=== PATIENT | male | born 1955 | race Caucasian/White ===

== ENCOUNTER 2017-03-19 23:07 | Inpatient (IN) | payer SELFPAY ==
[2017-03-20] MEDS ORDERED: Lorazepam 2 MG/ML VIAL ONE ×2 (00:20→00:21)
[2017-03-20 00:45] LABS: #Lymphocytes 0.5 thou/uL (1.20-3.40); #Monocytes 0.6 thou/uL (0.11-0.59); #Neutrophils 17.4 thou/uL (1.40-6.50); %Basophils 0.1 % (0.0-1.0); %Eosinophils 0.1 % (0.0-10.0); %Lymphocytes 2.7 % (21.0-51.0); %Monocytes 3.3 % (0.0-10.0); %Neutrophils 93.8 % (42.0-75.0); Hemoglobin 10.6 g/dL (14.0-18.0); Mean Corpuscular HGB CONC 34.2 g/dL (32.0-36.0); Mean Corpuscular Hemoglobin 35.7 pg (27.0-31.0); Mean Platelet Volume 6.6 fL (7.4-10.4); Platelet Count 138 thou/uL (130-400); RBC Distribution Width 11.3 % (11.5-14.5); Red Blood Cell (RBC) Count 2.98 mill/uL (4.70-6.10); White Blood Cell (WBC) Count 18.5 thou/uL (4.8-10.8)
[2017-03-20] MEDS ORDERED: Multivitamins, Adult 10 ML, Thiamine HCl 100 MG, Folic Acid 1 MG in Dextrose 5 %-0.45 %... IV SCH ×4 (01:00)
[2017-03-20 01:06] LABS: ALT (SGPT) 27 U/L (8-55); AST (SGOT) 45 U/L (5-34); Albumin 3.5 g/dL (3.4-4.8); Alkaline Phosphatase 126 U/L (40-150); Anion Gap 13 mmol/L (10-20); BUN (Urea Nitrogen) 13 mg/dL (8.4-25.7); Bilirubin, Total 1.2 mg/dL (0.2-1.2); Calc. Creatinine Clearance 0 mL/min (70-130); Calcium 8.9 mg/dL (7.8-10.44); Carbon Dioxide 25 mmol/L (23-31); Chloride 101 mmol/L (98-107); Estimated GFR-MDRD Greater than 90; Glucose 114 mg/dL (80-115); Potassium 3.4 mmol/L (3.5-5.1); Protein, Total 6.5 g/dL (5.8-8.1); Sodium 136 mmol/L (136-145)
[2017-03-20 01:11] LABS: CKMB 0.7 ng/mL (0-6.6); Troponin I 0.042 ng/mL (< 0.028)
[2017-03-20 03:38] VITALS: BMI 16.7
[2017-03-20] MEDS ORDERED: Ondansetron ODT 4 MG TAB SL PRN (04:02)
[2017-03-20] MEDS ORDERED: Sodium Chloride 0.45% 1,000 ML IV SCH (04:02)
[2017-03-20] MEDS ORDERED: Ondansetron HCl/PF 4 MG/2 ML Vial IVP PRN ×2 (04:02→07:55)
[2017-03-20] MEDS ORDERED: Lorazepam 2 MG/ML VIAL SLOW IVP PRN ×2 (04:05→07:55)
[2017-03-20] MEDS ORDERED: Sodium Chloride 0.65% Nasal 44 ML BOT EA NARE PRN (07:55)
[2017-03-20] MEDS ORDERED: hydrALAZINE 20 MG/ML VIAL SLOW IVP PRN (07:55)
[2017-03-20] MEDS ORDERED: Chloraseptic Spray 180 ml Bottle PO PRN (07:55)
[2017-03-20] MEDS ORDERED: Mag-Al 1200 mg/1200 mg/30 ML UDCUP PO PRN (07:55)
[2017-03-20] MEDS ORDERED: Zolpidem Tartrate 5 MG TAB PO PRN (07:55)
[2017-03-20] MEDS ORDERED: HYDROcodone/Acetaminophen 5/325 mg Tablet PO PRN (07:55)
[2017-03-20] MEDS ORDERED: Milk Of Magnesia 30 ML UDCUP PO PRN (07:55)
[2017-03-20] MEDS ORDERED: Diabetic Tussin 200 MG/10 ML UDCUP PO PRN (07:55)
[2017-03-20] MEDS ORDERED: cloNIDine 0.1 MG TAB PO PRN (07:55)
[2017-03-20] MEDS ORDERED: Eucerin (Mineral Oil/Petrolatum,White) 30 gm Jar TOP PRN (07:55)
[2017-03-20] MEDS ORDERED: Artificial Tears 18 DROP/0.9 ML EA EYE PRN (07:55)
[2017-03-20] MEDS ORDERED: Loratadine 10 MG TAB PO PRN (07:55)
[2017-03-20] MEDS ORDERED: Acetaminophen 325 MG TAB PO PRN (07:55)
[2017-03-20] MEDS ORDERED: Ondansetron ODT 4 MG TAB PO PRN (07:55)
[2017-03-20] MEDS ORDERED: Senokot 8.6 MG TAB PO PRN (07:55)
[2017-03-20] MEDS ORDERED: cefTRIAXone\\ROCEPHIN 1 GM in Sodium Chloride 0.9% 100 ML IVPB SCH (08:00)
[2017-03-20] MEDS: Folic Acid 1 MG TAB PO SCH (09:43)
[2017-03-20] MEDS: Cyanocobalamin (Vitamin B-12) 1,000 MCG TAB PO SCH (09:43)
[2017-03-20] MEDS: Multivitamin W/ Minerals 1 TAB PO SCH (09:43)
[2017-03-20] MEDS: Amlodipine 5 MG TAB PO SCH (09:44)
[2017-03-20] MEDS: guaiFENesin ER 600 MG TAB PO SCH ×2 (09:44→21:11)
[2017-03-20] MEDS: Famotidine 20 MG TAB PO SCH ×2 (09:44→21:11)
[2017-03-20] MEDS: Enoxaparin Sodium 30 MG/0.3 ML SYRINGE SC SCH (09:49)
[2017-03-20] MEDS: Loperamide HCl 2 MG CAP PO PRN (10:14)
--- NOTE | 2017-03-20 15:16 | HP ---
PRIMARY CARE PHYSICIAN: Dr. Lane Escobedo. REASON FOR ADMISSION: Sepsis, urinary tract infection. HISTORY OF PRESENT ILLNESS: This is a 61-year-old male who initially went to [facility]. The patient had an outpatient basis blood test done, and after that patient's blood test was s ignificantly abnormal with leukocytosis. Patient was called and he was instructed to go to emergency room for evaluation. Lately, patient was having poor appetite. He was having fatigue. He was not feeling good. He was h aving diarrhea as well as he was having nausea, vomiting, and intermittent fever. When he went to [facility], he was febrile with temperature 100.6. He was tachycardic with pulse 124 and he was hypertensive. His chest x-ray was normal. His urinalysis was suspected for urinary tract infection, though the patient denied any dysuria, increased frequency, or any hematuria. Patient wa s given Zosyn, ibuprofen, IV fluid, and subsequently he was transferred to our hospital for higher le aron of care. This patient is not a good historian. He denies any melena or hematochezia, but he does report diarr hea. He denies any chest pain, cough, pleurisy. He denies any sick exposure or recent travel. He d enies any focal motor symptoms. He denies any flu-like illness. His WBC count was initially 29,000, and subsequently repeated it was 21,000 and then this morning it was 18,000. This patient also had indeterminate troponin. Influenza screen was negative. ALLERGIES: No known drug allergies. CURRENT HOME MEDICATIONS: The patient is not taking any medication at this point. He is supposed to take his blood pressure medicine, but he is also noncompliant. He does not know the name of medicat ion, so unable to review at this point. PAST MEDICAL HISTORY: Hypertension, COPD, alcohol abuse, tobacco abuse, macrocytic anemia, recent di agnosis of nondisplaced fibular neck fracture, protein-calorie malnutrition. PAST SURGICAL HISTORY: Left inguinal hernia repair. PAST PSYCHIATRIC HISTORY: Reviewed and negative. SOCIAL HISTORY: Patient drinks alcohol almost every day basis. He has chronic alcoholism. He smoke s a variable number of cigarettes every day basis. He denies any illicit drug abuse. He is and lives with the in [place]. FAMILY HISTORY: No strong family history of premature coronary artery disease, stroke, or cancer. EMERGENCY ROOM COURSE: Patient is given ibuprofen, IV fluid, and Zosyn at [facility]. The patient was given vancomycin, Ativan 2 mg, and DuoNeb therapy, and banana bag in our emergenc y room. REVIEW OF SYSTEMS: The following complete review of systems was negative, unless otherwise mentioned in the HPI or below: Constitutional: Weight loss or gain, ability to conduct usual activities. Sk in: Rash, itching. Eyes: Double vision, pain. ENT/Mouth: Nose bleeding, neck stiffness, pain, te nderness. Cardiovascular: Palpitations, dyspnea on exertion, orthopnea. Respiratory: Shortness of breath, wheezing, cough, hemoptysis, fever, or night sweats. Gastrointestinal: Poor appetite, abdo elizabeth pain, heartburn, nausea, vomiting, constipation, or diarrhea. Genitourinary: Urgency, frequen cy, dysuria, nocturia. Musculoskeletal: Pain, swelling. Neurologic/Psychiatric: Anxiety, depressi on. Allergy/Immunologic: Skin rash, bleeding tendency. Please see my HPI for pertinent positives a nd negatives. All other review of systems reviewed and negative except as mentioned in the HPI. PHYSICAL EXAMINATION: VITAL SIGNS: On our emergency room, blood pressure was 176/110, pulse 109, respiratory rate 20, temp erature 98.4, saturation 90% on room air, weight 44 kilograms. GENERAL: Patient is currently alert, awake, tachycardic, in no obvious acute distress. HEENT: Normocephalic, atraumatic. Eyes: Pupils round and reactive to light. Extraocular muscles i ntact. ENT: Oropharynx within normal limits. Moist mucous membranes. No oral lesions. No pharyng eal erythema, no exudate. NECK: Supple, no JVD, no thyromegaly, no carotid bruit, no jugular venous distention. LUNGS: Clear to auscultation without any rhonchi or rales. CARDIAC: S1 and S2, regular, tachycardia, no murmur, no gallop, no rub. ABDOMEN: Soft, bowel sounds present, nontender, nondistended. No organomegaly, no mass, no suprapub ic tenderness. BACK EXAMINATION: Unremarkable, no CVA tenderness. EXTREMITIES: Upper extremities, passive movement of all joints are normal. Lower extremities, no ed trudy. Good peripheral pulsation. SKIN: No skin rash. HEMATOLOGICAL SYSTEM: No lymphadenopathy. NEUROLOGIC: Grossly nonfocal examination. The patient moves all 4 limbs. Plantar bilateral flexor. PSYCHIATRIC: Anxious affect. SIGNIFICANT LABORATORY DATA: Influenza A and B negative. CBC: WBC 18.5, hemoglobin 10.6, platelets 138. BMP: Sodium 136, potassium 3.4, chloride 101, carbon dioxide 25, BUN 13, creatinine 0.62, glu cose 114, calcium 8.9. LFTs: AST 45, ALT 27, alkaline phosphatase 126, albumin 3.5. CK-MB 0.7, tro ponin I 0.04. Lactic acid 1.0. Chest x-ray, based on my review, no acute cardiopulmonary process. ASSESSMENT AND PLAN: 1. Sepsis with acute organ dysfunction. The patient has leukocytosis with bandemia, source of infec tion is urinary tract infection. He has demand ischemia of myocardium. He has lactic acidosis. Pat ient will be given gentle IV fluids and broad-spectrum antibiotic therapy. We will follow up on cult ure result. We will also check stool for C. difficile. 2. Urinary tract infection. Patient is kept on Rocephin and Levaquin therapy. We will follow up on urine culture result, and based on culture result, we will change antibiotic therapy accordingly. 3. Lactic acidosis, on repeat testing lactic acid is normal, likely due to underlying sepsis. 4. Elevated troponin, likely due to demand ischemia from sepsis. We will repeat cardiac enzymes aga in one more time tomorrow morning. 5. Nondisplaced fibular neck fracture. We will consult PT and OT. This patient is ambulating with a walker. We will control his pain with the pain medication. Patient is advised to follow up with o rthopedic physician on an outpatient basis. 6. Protein-calorie malnutrition. The patient will be given nutritional supplement with Ensure t.i.d . 7. Hypokalemia. We will replace potassium with IV fluid and we will check magnesium and phosphorous tomorrow. 8. Tobacco abuse disorder. Smoking cessation counseling given. Healthy lifestyle measures discusse d with the patient. 9. Alcoholism with alcohol withdrawal syndrome. We will use folic acid, vitamin B12, thiamine thera py, and we will also use Ativan p.r.n. basis for possible withdrawal. 10. Microcytic anemia. Continue folic acid and vitamin B12 therapy. 11. Abnormal liver function tests, likely due to alcoholism. We will repeat LFTs tomorrow. 12. Deep venous thrombosis prophylaxis. Lovenox 30 mg subcutaneously daily. 13. Gastrointestinal prophylaxis. Pepcid 20 mg p.o. b.i.d. 14. Code status: The patient is FULL CODE. The patient's is surrogate decision maker. Disposition plan based on clinical course. We are expecting patient's stay in hospital more than 2 m idnights. Plan of care discussed with the patient in detail.
[2017-03-21 06:20] LABS: #Eosinphils 0.1 thou/uL (0.0-0.7); #Lymphocytes 0.9 thou/uL (1.20-3.40); #Monocytes 0.6 thou/uL (0.11-0.59); #Neutrophils 5.5 thou/uL (1.40-6.50); %Basophils 0.4 % (0.0-1.0); %Eosinophils 0.8 % (0.0-10.0); %Lymphocytes 12.3 % (21.0-51.0); %Monocytes 8.2 % (0.0-10.0); %Neutrophils 78.3 % (42.0-75.0); Hemoglobin 11.7 g/dL (14.0-18.0); Mean Corpuscular HGB CONC 33.2 g/dL (32.0-36.0); Mean Corpuscular Hemoglobin 34.9 pg (27.0-31.0); Mean Platelet Volume 7.2 fL (7.4-10.4); Platelet Count 140 thou/uL (130-400); RBC Distribution Width 11.1 % (11.5-14.5); Red Blood Cell (RBC) Count 3.34 mill/uL (4.70-6.10); White Blood Cell (WBC) Count 7.1 thou/uL (4.8-10.8)
[2017-03-21 06:33] LABS: ALT (SGPT) 19 U/L (8-55); AST (SGOT) 39 U/L (5-34); Albumin 3.3 g/dL (3.4-4.8); Alkaline Phosphatase 119 U/L (40-150); Anion Gap 13 mmol/L (10-20); BUN (Urea Nitrogen) 7 mg/dL (8.4-25.7); Bilirubin, Total 0.7 mg/dL (0.2-1.2); Calc. Creatinine Clearance 109 mL/min (70-130); Calcium 9.2 mg/dL (7.8-10.44); Carbon Dioxide 27 mmol/L (23-31); Chloride 95 mmol/L (98-107); Estimated GFR-MDRD Greater than 90; Glucose 74 mg/dL (80-115); Magnesium 1.2 mg/dL (1.6-2.6); Phosphorus 2.8 mg/dL (2.3-4.7); Protein, Total 6.3 g/dL (5.8-8.1); Sodium 132 mmol/L (136-145)
[2017-03-21 06:35] LABS: CKMB 0.5 ng/mL (0-6.6); Troponin I 0.021 ng/mL (< 0.028)
[2017-03-21 06:37] LABS: Potassium 2.7 mmol/L (3.5-5.1)
[2017-03-21] MEDS ORDERED: Magnesium Sulfate 4 GM, Admixture Fee 1 EACH in Sodium Chloride 0.9% 250 ML 250 ML IVPB SCH (07:45)
[2017-03-21] MEDS: Potassium Chloride 20 MEQ TAB PO SCH ×3 (09:23→21:14)
[2017-03-21] MEDS: Folic Acid 1 MG TAB PO SCH (09:24)
[2017-03-21] MEDS: Enoxaparin Sodium 30 MG/0.3 ML SYRINGE SC SCH (09:24)
[2017-03-21] MEDS: Famotidine 20 MG TAB PO SCH ×2 (09:24→21:14)
[2017-03-21] MEDS: Cyanocobalamin (Vitamin B-12) 1,000 MCG TAB PO SCH (09:24)
[2017-03-21] MEDS: Multivitamin W/ Minerals 1 TAB PO SCH (09:24)
[2017-03-21] MEDS: guaiFENesin ER 600 MG TAB PO SCH ×2 (09:24→21:14)
[2017-03-21] MEDS: Amlodipine 5 MG TAB PO SCH (09:24)
--- NOTE | 2017-03-21 10:49 | PDOC.PN ---
- Subjective Encounter Start Date: 03/21/17 Encounter Start Time: 08:50 -: old records requested/rev Patient seen and examined. No new complaints. No overnight events, no fever - Objective Resuscitation Status: Resuscitation Status FULL:Full Resuscitation MAR Reviewed: Yes Vital Signs & Weight: Vital Signs (12 hours) Temp Pulse Resp BP BP Pulse Ox 03/21/17 09:24 92 172/94 H 03/21/17 08:00 98.1 F 92 18 172/94 H 98 03/21/17 04:00 97.8 F 88 18 150/78 H 150/78 H 98 Weight Admit Weight 113 lb 11.2 oz Weight 113 lb 11.2 oz I&O: 03/20/17 03/21/17 03/22/17 06:59 06:59 06:59 Intake Total 1020 240 Output Total 100 1580 Balance -100 -560 240 Result Diagrams: 03/21/17 05:01 03/21/17 05:01 EKG Reviewed by me: Yes (nsr) Phys Exam - Physical Examination Constitutional: NAD HEENT: PERRLA, moist MMs, sclera anicteric Neck: no JVD, supple Respiratory: no wheezing, no rales, no rhonchi Cardiovascular: RRR, no significant murmur, no rub Gastrointestinal: soft, non-tender, no distention, positive bowel sounds Musculoskeletal: no edema, pulses present Neurological: non-focal, normal sensation, moves all 4 limbs Lymphatic: no nodes Psychiatric: normal affect, A&O x 3 Skin: no rash, normal turgor Dx/Plan (1) Demand ischemia Code(s): I24.8 - OTHER FORMS OF ACUTE ISCHEMIC HEART DISEASE Status: Acute (2) Hypokalemia Code(s): E87.6 - HYPOKALEMIA Status: Acute (3) Hypomagnesemia Code(s): E83.42 - HYPOMAGNESEMIA Status: Acute (4) Nondisplaced fracture of fibula Code(s): S82.839A - OTH FRACTURE OF UPPER AND LOWER END OF UNSP FIBULA, INIT Status: Acute (5) Sepsis with acute organ dysfunction Code(s): A41.9 - SEPSIS, UNSPECIFIED ORGANISM; R65.20 - SEVERE SEPSIS WITHOUT SEPTIC SHOCK Status: Acute (6) UTI (urinary tract infection) Status: Acute (7) Abnormal LFTs Code(s): R79.89 - OTHER SPECIFIED ABNORMAL FINDINGS OF BLOOD CHEMISTRY Status : Chronic (8) Alcohol abuse Code(s): F10.10 - ALCOHOL ABUSE, UNCOMPLICATED Status: Chronic (9) Hypertension Code(s): I10 - ESSENTIAL (PRIMARY) HYPERTENSION Status: Chronic (10) Macrocytic anemia Code(s): D53.9 - NUTRITIONAL ANEMIA, UNSPECIFIED Status: Chronic (11) Protein-calorie malnutrition, moderate Code(s): E44.0 - MODERATE PROTEIN-CALORIE MALNUTRITION Status: Chronic (12) Tobacco abuse Code(s): Z72.0 - TOBACCO USE Status: Chronic (13) Lactic acidosis Code(s): E87.2 - ACIDOSIS Status: Resolved - Plan cont current plan of care, continue antibiotics * DC tele * transfer to medical * continue rocephin and levaquin * medication reviewed as below * symptomatic treatment * follow culture * continue PT. * replace magnesium and potassium Review of Systems - Review of Systems ENT: negative: Ear Pain, Ear Discharge, Nose Pain, Nose Discharge, Nose Congestion, Mouth Pain, Mouth Swelling, Throat Pain, Throat Swelling, Other Respiratory: negative: Cough, Dry, Shortness of Breath, Hemoptysis, SOB with Excertion, Pleuritic Pain, Sputum, Wheezing Cardiovascular: negative: chest pain, palpitations, orthopnea, paroxysmal nocturnal dyspnea, edema, light headedness, other Gastrointestinal: negative: Nausea, Vomiting, Abdominal Pain, Diarrhea, Constipation, Melena, Hematochezia, Other Genitourinary: negative: Dysuria, Frequency, Incontinence, Hematuria, Retention , Other Musculoskeletal: negative: Neck Pain, Shoulder Pain, Arm Pain, Back Pain, Hand Pain, Leg Pain, Foot Pain, Other Skin: negative: Rash, Lesions, Senthil, Bruising, Other - Medications/Allergies Allergies/Adverse Reactions: Allergies Allergy/AdvReac Type Severity Reaction Status Date / Time lactose Allergy Verified 03/20/17 03:34 Medications: Current Medications Acetaminophen (Tylenol) 650 mg PO Q4H PRN PRN Reason: Headache/Fever or Pain Hydrocodone Bitart/Acetaminophen ([place] 5/325) 1 tab PO Q4H PRN PRN Reason: Moderate Pain (4-6) Last Admin: 03/20/17 21:10 Dose: 1 tab Al Hydroxide/Mg Hydroxide (Maalox) 30 ml PO Q6H PRN PRN Reason: Heartburn or Indigestion Albuterol/Ipratropium (Duoneb) 3 ml NEB [id number] PRN PRN Reason: SOB &/or Wheezing Amlodipine Besylate (Norvasc) 5 mg PO DAILY [facility] Last Admin: 03/21/17 09:24 Dose: 5 mg Artificial Tears (Tears Naturale) 0 drop EA EYE PRN PRN PRN Reason: Dry Eyes Ceftriaxone Sodium (Rocephin) 1 gm SLOW IVP Q24H [facility] Last Admin: 03/21/17 10:45 Dose: 1 gm Clonidine (Catapres) 0.1 mg PO Q4H PRN PRN Reason: Systolic BP > 180 Cyanocobalamin (Vitamin B-12) 1,000 mcg PO DAILY [facility] Last Admin: 03/21/17 09:24 Dose: 1,000 mcg Enoxaparin Sodium (Lovenox) 30 mg SC 0900 [facility] Last Admin: 03/21/17 09:24 Dose: 30 mg Famotidine (Pepcid) 20 mg PO BID [facility] Last Admin: 03/21/17 09:24 Dose: 20 mg Folic Acid (Folvite) 1 mg PO DAILY [facility] Last Admin: 03/21/17 09:24 Dose: 1 mg Guaifenesin (Robitussin Sf) 200 mg PO Q4H PRN PRN Reason: Cough Guaifenesin (Mucinex) 600 mg PO Q12HR [facility] Last Admin: 03/21/17 09:24 Dose: 600 mg Hydralazine HCl (Apresoline) 10 mg SLOW IVP Q4H PRN PRN Reason: Systolic BP > 180 Levofloxacin 500 mg/ Device 100 mls @ 100 mls/hr IVPB Q24HR [facility] Last Admin: 03/21/17 09:29 Dose: 100 mls Magnesium Sulfate 4 gm/Miscellaneous Medication 1 each/ Sodium Chloride 258 mls @ 86 mls/hr IVPB ONE [facility] Stop: 03/21/17 11:00 Last Admin: 03/21/17 09:25 Dose: 258 mls Iron/Minerals/Multivitamins (Theragran M) 1 tab PO DAILY [facility] Last Admin: 03/21/17 09:24 Dose: 1 tab Loperamide HCl (Imodium) 2 mg PO PRN PRN PRN Reason: Diarrhea/Loose Stools Last Admin: 03/20/17 10:14 Dose: 2 mg Loratadine (Claritin) 10 mg PO DAILYPRN PRN PRN Reason: Sinus Symptoms Lorazepam (Ativan) 1 mg SLOW IVP Q4H PRN PRN Reason: Anxiety/Agitation Magnesium Hydroxide (Milk Of Magnesium) 30 ml PO DAILYPRN PRN PRN Reason: Constipation Mineral Oil/White Petrolatum (Eucerin Cream) 0 gm TOP BIDPRN PRN PRN Reason: Dry Skin Morphine Sulfate (Morphine) 2 mg SLOW IVP Q4H PRN PRN Reason: Mild-Moderate Pain (1-5) Ondansetron HCl (Zofran Odt) 4 mg PO Q6H PRN PRN Reason: Nausea/Vomiting Ondansetron HCl (Zofran) 4 mg IVP Q6H PRN PRN Reason: Nausea/Vomiting Phenol (Chloraseptic [place] 180 Ml Bot) 0 ml PO PRN PRN PRN Reason: Sore Throat Potassium Chloride (K-Dur) 40 meq PO TID [facility] Stop: 03/21/17 21:01 Last Admin: 03/21/17 09:23 Dose: 40 meq Senna (Senokot) 2 tab PO HSPRN PRN PRN Reason: Constipation Sodium Chloride ([place] Nasal [place] 0.65%) 0 ml EA NARE QIDPRN PRN PRN Reason: Nasal Congestion Sodium Chloride (Flush - Normal Saline) 10 ml IVF Q12HR [facility] Last Admin: 03/21/17 09:25 Dose: 10 ml Sodium Chloride (Flush - Normal Saline) 10 ml IVF PRN PRN PRN Reason: Saline Flush Thiamine HCl (Thiamine) 100 mg PO DAILY [facility] Last Admin: 03/21/17 09:24 Dose: 100 mg Zolpidem Tartrate (Ambien) 5 mg PO HSPRN PRN PRN Reason: Insomnia
[2017-03-21] MEDS: Loperamide HCl 2 MG CAP PO PRN (23:38)
[2017-03-22 06:00] LABS: #Lymphocytes 0.7 thou/uL (1.20-3.40); #Monocytes 0.8 thou/uL (0.11-0.59); %Basophils 0.3 % (0.0-1.0); %Eosinophils 0.4 % (0.0-10.0); %Lymphocytes 9.8 % (21.0-51.0); %Monocytes 10.2 % (0.0-10.0); %Neutrophils 79.3 % (42.0-75.0); Hemoglobin 10.8 g/dL (14.0-18.0); Mean Corpuscular HGB CONC 33.9 g/dL (32.0-36.0); Mean Corpuscular Hemoglobin 35.2 pg (27.0-31.0); Mean Platelet Volume 6.9 fL (7.4-10.4); Platelet Count 158 thou/uL (130-400); RBC Distribution Width 10.7 % (11.5-14.5); Red Blood Cell (RBC) Count 3.07 mill/uL (4.70-6.10); White Blood Cell (WBC) Count 7.6 thou/uL (4.8-10.8)
[2017-03-22 06:18] LABS: ALT (SGPT) 21 U/L (8-55); AST (SGOT) 39 U/L (5-34); Albumin 3.3 g/dL (3.4-4.8); Alkaline Phosphatase 117 U/L (40-150); Anion Gap 9 mmol/L (10-20); BUN (Urea Nitrogen) 5 mg/dL (8.4-25.7); Bilirubin, Total 0.7 mg/dL (0.2-1.2); Calc. Creatinine Clearance 111 mL/min (70-130); Calcium 8.5 mg/dL (7.8-10.44); Carbon Dioxide 27 mmol/L (23-31); Chloride 94 mmol/L (98-107); Estimated GFR-MDRD Greater than 90; Globulin 2.9 g/dL (2.4-3.5); Glucose 84 mg/dL (80-115); Magnesium 1.6 mg/dL (1.6-2.6); Potassium 3.4 mmol/L (3.5-5.1); Protein, Total 6.2 g/dL (5.8-8.1); Sodium 127 mmol/L (136-145)
[2017-03-22] MEDS: guaiFENesin ER 600 MG TAB PO SCH ×2 (10:02→21:56)
[2017-03-22] MEDS: Cyanocobalamin (Vitamin B-12) 1,000 MCG TAB PO SCH (10:04)
[2017-03-22] MEDS: Amlodipine 5 MG TAB PO SCH (10:05)
[2017-03-22] MEDS: Loperamide HCl 2 MG CAP PO PRN (10:08)
[2017-03-22] MEDS: Potassium Chloride 20 MEQ TAB PO SCH ×2 (10:09→17:35)
[2017-03-22] MEDS: Enoxaparin Sodium 30 MG/0.3 ML SYRINGE SC SCH (10:09)
[2017-03-22] MEDS: Folic Acid 1 MG TAB PO SCH (10:12)
[2017-03-22] MEDS: Famotidine 20 MG TAB PO SCH ×2 (10:12→21:56)
[2017-03-22] MEDS: Multivitamin W/ Minerals 1 TAB PO SCH (10:13)
--- NOTE | 2017-03-22 11:01 | PDOC.PN ---
- Subjective Encounter Start Date: 03/22/17 Encounter Start Time: 09:00 Patient seen and examined. No new complaints. No overnight events still has diarrhoea - Objective Resuscitation Status: Resuscitation Status FULL:Full Resuscitation MAR Reviewed: Yes Vital Signs & Weight: Vital Signs (12 hours) Temp Pulse Resp BP BP Pulse Ox 03/22/17 10:05 92 173/97 H 03/22/17 08:00 97.4 F L 88 14 173/97 H 03/22/17 04:00 98.1 F 96 19 162/98 H 03/22/17 00:00 97.9 F 96 20 158/94 H 158/94 H 95 Weight Admit Weight 113 lb 11.2 oz Weight 113 lb 11.2 oz I&O: 03/21/17 03/22/17 03/23/17 06:59 06:59 06:59 Intake Total 1020 840 Output Total 1580 650 Balance -560 190 Result Diagrams: 03/22/17 05:26 03/22/17 05:26 Phys Exam - Physical Examination Constitutional: NAD HEENT: PERRLA, moist MMs, sclera anicteric Neck: no JVD, supple Respiratory: no wheezing, no rales, no rhonchi Cardiovascular: RRR, no significant murmur, no rub Gastrointestinal: soft, non-tender, no distention, positive bowel sounds Musculoskeletal: no edema, pulses present Neurological: non-focal, normal sensation Lymphatic: no nodes Psychiatric: normal affect Skin: no rash, normal turgor Dx/Plan (1) C. difficile colitis Status: Acute (2) Demand ischemia Code(s): I24.8 - OTHER FORMS OF ACUTE ISCHEMIC HEART DISEASE Status: Acute (3) Hypokalemia Code(s): E87.6 - HYPOKALEMIA Status: Acute (4) Hypomagnesemia Code(s): E83.42 - HYPOMAGNESEMIA Status: Acute (5) Nondisplaced fracture of fibula Code(s): S82.839A - OTH FRACTURE OF UPPER AND LOWER END OF UNSP FIBULA, INIT Status: Acute (6) Sepsis with acute organ dysfunction Code(s): A41.9 - SEPSIS, UNSPECIFIED ORGANISM; R65.20 - SEVERE SEPSIS WITHOUT SEPTIC SHOCK Status: Acute (7) UTI (urinary tract infection) Status: Ruled-out (8) Abnormal LFTs Code(s): R79.89 - OTHER SPECIFIED ABNORMAL FINDINGS OF BLOOD CHEMISTRY Status : Chronic (9) Alcohol abuse Code(s): F10.10 - ALCOHOL ABUSE, UNCOMPLICATED Status: Chronic (10) Hypertension Code(s): I10 - ESSENTIAL (PRIMARY) HYPERTENSION Status: Chronic (11) Macrocytic anemia Code(s): D53.9 - NUTRITIONAL ANEMIA, UNSPECIFIED Status: Chronic (12) Protein-calorie malnutrition, moderate Code(s): E44.0 - MODERATE PROTEIN-CALORIE MALNUTRITION Status: Chronic (13) Tobacco abuse Code(s): Z72.0 - TOBACCO USE Status: Chronic (14) Lactic acidosis Code(s): E87.2 - ACIDOSIS Status: Resolved - Plan cont current plan of care, continue antibiotics, 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 negative: fever, chills, sweats, malaise, other ENT: negative: Ear Pain, Ear Discharge, Nose Pain, Nose Discharge, Nose Congestion, Mouth Pain, Mouth Swelling, Throat Pain, Throat Swelling, Other Respiratory: negative: Cough, Dry, Shortness of Breath, Hemoptysis, SOB with Excertion, Pleuritic Pain, Sputum, Wheezing Cardiovascular: negative: chest pain, palpitations, orthopnea, paroxysmal nocturnal dyspnea, edema, light headedness, other Gastrointestinal: Diarrhea. negative: Nausea, Vomiting, Abdominal Pain, Constipation, Melena, Hematochezia, Other Genitourinary: negative: Dysuria, Frequency, Incontinence, Hematuria, Retention , Other Musculoskeletal: negative: Neck Pain, Shoulder Pain, Arm Pain, Back Pain, Hand Pain, Leg Pain, Foot Pain, Other Skin: negative: Rash, Lesions, Senthil, Bruising, Other - Medications/Allergies Allergies/Adverse Reactions: Allergies Allergy/AdvReac Type Severity Reaction Status Date / Time lactose Allergy Verified 03/20/17 03:34 Medications: Current Medications Acetaminophen (Tylenol) 650 mg PO Q4H PRN PRN Reason: Headache/Fever or Pain Hydrocodone Bitart/Acetaminophen ([place] 5/325) 1 tab PO Q4H PRN PRN Reason: Moderate Pain (4-6) Last Admin: 03/20/17 21:10 Dose: 1 tab Al Hydroxide/Mg Hydroxide (Maalox) 30 ml PO Q6H PRN PRN Reason: Heartburn or Indigestion Albuterol/Ipratropium (Duoneb) 3 ml NEB [id number] PRN PRN Reason: SOB &/or Wheezing Amlodipine Besylate (Norvasc) 5 mg PO DAILY [facility] Last Admin: 03/22/17 10:05 Dose: 5 mg Artificial Tears (Tears Naturale) 0 drop EA EYE PRN PRN PRN Reason: Dry Eyes Clonidine (Catapres) 0.1 mg PO Q4H PRN PRN Reason: Systolic BP > 180 Cyanocobalamin (Vitamin B-12) 1,000 mcg PO DAILY [facility] Last Admin: 03/22/17 10:04 Dose: 1,000 mcg Enoxaparin Sodium (Lovenox) 30 mg SC 0900 [facility] Last Admin: 03/22/17 10:09 Dose: 30 mg Famotidine (Pepcid) 20 mg PO BID [facility] Last Admin: 03/22/17 10:12 Dose: 20 mg Folic Acid (Folvite) 1 mg PO DAILY [facility] Last Admin: 03/22/17 10:12 Dose: 1 mg Guaifenesin (Robitussin Sf) 200 mg PO Q4H PRN PRN Reason: Cough Guaifenesin (Mucinex) 600 mg PO Q12HR [facility] Last Admin: 03/22/17 10:02 Dose: 600 mg Hydralazine HCl (Apresoline) 10 mg SLOW IVP Q4H PRN PRN Reason: Systolic BP > 180 Metronidazole 500 mg/ Device 100 mls @ 100 mls/hr IVPB Q8HR [facility] Iron/Minerals/Multivitamins (Theragran M) 1 tab PO DAILY [facility] Last Admin: 03/22/17 10:13 Dose: 1 tab Loperamide HCl (Imodium) 2 mg PO PRN PRN PRN Reason: Diarrhea/Loose Stools Last Admin: 03/22/17 10:08 Dose: 2 mg Loratadine (Claritin) 10 mg PO DAILYPRN PRN PRN Reason: Sinus Symptoms Lorazepam (Ativan) 1 mg SLOW IVP Q4H PRN PRN Reason: Anxiety/Agitation Magnesium Hydroxide (Milk Of Magnesium) 30 ml PO DAILYPRN PRN PRN Reason: Constipation Mineral Oil/White Petrolatum (Eucerin Cream) 0 gm TOP BIDPRN PRN PRN Reason: Dry Skin Morphine Sulfate (Morphine) 2 mg SLOW IVP Q4H PRN PRN Reason: Mild-Moderate Pain (1-5) Ondansetron HCl (Zofran Odt) 4 mg PO Q6H PRN PRN Reason: Nausea/Vomiting Ondansetron HCl (Zofran) 4 mg IVP Q6H PRN PRN Reason: Nausea/Vomiting Phenol (Chloraseptic [place] 180 Ml Bot) 0 ml PO PRN PRN PRN Reason: Sore Throat Potassium Chloride (K-Dur) 40 meq PO BID-[facility] Stop: 03/22/17 17:01 Last Admin: 03/22/17 10:09 Dose: 40 meq Senna (Senokot) 2 tab PO HSPRN PRN PRN Reason: Constipation Sodium Chloride ([place] Nasal [place] 0.65%) 0 ml EA NARE QIDPRN PRN PRN Reason: Nasal Congestion Sodium Chloride (Flush - Normal Saline) 10 ml IVF Q12HR [facility] Last Admin: 03/22/17 10:10 Dose: 10 ml Sodium Chloride (Flush - Normal Saline) 10 ml IVF PRN PRN PRN Reason: Saline Flush Last Admin: 03/22/17 10:11 Dose: 10 ml Thiamine HCl (Thiamine) 100 mg PO DAILY [facility] Last Admin: 03/22/17 10:04 Dose: 100 mg Vancomycin HCl (First Vancomycin) 125 mg PO QID [facility] Zolpidem Tartrate (Ambien) 5 mg PO HSPRN PRN PRN Reason: Insomnia
[2017-03-22] MEDS: Vancomycin HCl 25 MG/ML Oral PO SCH ×4 (12:29→21:56)
[2017-03-22] MEDS: metroNIDAZOLE 500 MG in Premix Bag 1 BAG IVPB SCH ×2 (14:23→22:56)
[2017-03-23] MEDS: metroNIDAZOLE 500 MG in Premix Bag 1 BAG IVPB SCH ×3 (06:45→20:51)
[2017-03-23 08:19] LABS: Anion Gap 12 mmol/L (10-20); BUN (Urea Nitrogen) 5 mg/dL (8.4-25.7); Calc. Creatinine Clearance 103 mL/min (70-130); Calcium 9.2 mg/dL (7.8-10.44); Carbon Dioxide 23 mmol/L (23-31); Chloride 96 mmol/L (98-107); Estimated GFR-MDRD Greater than 90; Glucose 90 mg/dL (80-115); Potassium 3.7 mmol/L (3.5-5.1); Sodium 127 mmol/L (136-145)
[2017-03-23] MEDS: Enoxaparin Sodium 30 MG/0.3 ML SYRINGE SC SCH (09:48)
[2017-03-23] MEDS: Famotidine 20 MG TAB PO SCH ×2 (09:49→20:50)
[2017-03-23] MEDS: Multivitamin W/ Minerals 1 TAB PO SCH (09:49)
[2017-03-23] MEDS: guaiFENesin ER 600 MG TAB PO SCH ×2 (09:49→20:50)
[2017-03-23] MEDS: Folic Acid 1 MG TAB PO SCH (09:49)
[2017-03-23] MEDS: Vancomycin HCl 25 MG/ML Oral PO SCH ×4 (09:49→20:48)
[2017-03-23] MEDS: Amlodipine 5 MG TAB PO SCH (09:49)
[2017-03-23] MEDS: Cyanocobalamin (Vitamin B-12) 1,000 MCG TAB PO SCH (09:51)
--- NOTE | 2017-03-23 11:30 | PDOC.PN ---
- Subjective Encounter Start Date: 03/23/17 Encounter Start Time: 10:20 Patient seen and examined. No new complaints. No overnight events still has diarrhoea - Objective Resuscitation Status: Resuscitation Status FULL:Full Resuscitation MAR Reviewed: Yes Vital Signs & Weight: Vital Signs (12 hours) Temp Pulse Resp BP BP Pulse Ox 03/23/17 09:49 80 156/92 H 03/23/17 08:00 97.9 F 80 18 156/92 H 100 03/23/17 04:00 98.2 F 87 19 145/90 H 145/90 H 98 03/23/17 00:00 98.2 F 91 19 134/82 100 Weight Admit Weight 113 lb 11.2 oz Weight 113 lb 11.2 oz I&O: 03/22/17 03/23/17 03/24/17 06:59 06:59 06:59 Intake Total 840 1050 Output Total 650 500 Balance 190 550 Result Diagrams: 03/22/17 05:26 03/23/17 07:52 Phys Exam - Physical Examination Constitutional: NAD HEENT: PERRLA, moist MMs, sclera anicteric Neck: no JVD, supple Respiratory: no wheezing, no rales, no rhonchi Cardiovascular: RRR, no significant murmur, no rub Gastrointestinal: soft, non-tender, no distention, positive bowel sounds Musculoskeletal: no edema, pulses present Neurological: non-focal, normal sensation Psychiatric: normal affect, A&O x 3 Skin: no rash, normal turgor Dx/Plan (1) C. difficile colitis Status: Acute (2) Demand ischemia Code(s): I24.8 - OTHER FORMS OF ACUTE ISCHEMIC HEART DISEASE Status: Acute (3) Hypokalemia Code(s): E87.6 - HYPOKALEMIA Status: Acute (4) Hypomagnesemia Code(s): E83.42 - HYPOMAGNESEMIA Status: Acute (5) Nondisplaced fracture of fibula Code(s): S82.839A - OTH FRACTURE OF UPPER AND LOWER END OF UNSP FIBULA, INIT Status: Acute (6) Sepsis with acute organ dysfunction Code(s): A41.9 - SEPSIS, UNSPECIFIED ORGANISM; R65.20 - SEVERE SEPSIS WITHOUT SEPTIC SHOCK Status: Acute (7) UTI (urinary tract infection) Status: Ruled-out (8) Abnormal LFTs Code(s): R79.89 - OTHER SPECIFIED ABNORMAL FINDINGS OF BLOOD CHEMISTRY Status : Chronic (9) Alcohol abuse Code(s): F10.10 - ALCOHOL ABUSE, UNCOMPLICATED Status: Chronic (10) Hypertension Code(s): I10 - ESSENTIAL (PRIMARY) HYPERTENSION Status: Chronic (11) Macrocytic anemia Code(s): D53.9 - NUTRITIONAL ANEMIA, UNSPECIFIED Status: Chronic (12) Protein-calorie malnutrition, moderate Code(s): E44.0 - MODERATE PROTEIN-CALORIE MALNUTRITION Status: Chronic (13) Tobacco abuse Code(s): Z72.0 - TOBACCO USE Status: Chronic (14) Lactic acidosis Code(s): E87.2 - ACIDOSIS Status: Resolved (15) Hyponatremia Code(s): E87.1 - HYPO-OSMOLALITY AND HYPONATREMIA Status: Acute - Plan cont current plan of care, continue antibiotics * will start NS with KCL at 50 ml per hour * repeat lab tomorrow * continue oral vancomycin and IV flagyl * will monitor today * expecting discharge over weekend * medication reviewed as below * symptomatic treatment. Review of Systems - Review of Systems Eyes: negative: Pain, Vision Change, Conjunctivae Inflammation, Eyelid Inflammation, Redness, Other ENT: negative: Ear Pain, Ear Discharge, Nose Pain, Nose Discharge, Nose Congestion, Mouth Pain, Mouth Swelling, Throat Pain, Throat Swelling, Other Respiratory: negative: Cough, Dry, Shortness of Breath, Hemoptysis, SOB with Excertion, Pleuritic Pain, Sputum, Wheezing Cardiovascular: negative: chest pain, palpitations, orthopnea, paroxysmal nocturnal dyspnea, edema, light headedness, other Gastrointestinal: Diarrhea. negative: Nausea, Vomiting, Abdominal Pain, Constipation, Melena, Hematochezia, Other Genitourinary: negative: Dysuria, Frequency, Incontinence, Hematuria, Retention , Other Musculoskeletal: negative: Neck Pain, Shoulder Pain, Arm Pain, Back Pain, Hand Pain, Leg Pain, Foot Pain, Other Skin: negative: Rash, Lesions, Senthil, Bruising, Other - Medications/Allergies Allergies/Adverse Reactions: Allergies Allergy/AdvReac Type Severity Reaction Status Date / Time lactose Allergy Verified 03/20/17 03:34 Medications: Current Medications Acetaminophen (Tylenol) 650 mg PO Q4H PRN PRN Reason: Headache/Fever or Pain Hydrocodone Bitart/Acetaminophen ([place] 5/325) 1 tab PO Q4H PRN PRN Reason: Moderate Pain (4-6) Last Admin: 03/20/17 21:10 Dose: 1 tab Al Hydroxide/Mg Hydroxide (Maalox) 30 ml PO Q6H PRN PRN Reason: Heartburn or Indigestion Albuterol/Ipratropium (Duoneb) 3 ml NEB [id number] PRN PRN Reason: SOB &/or Wheezing Last Admin: 03/22/17 14:42 Dose: 3 ml Amlodipine Besylate (Norvasc) 5 mg PO DAILY [facility] Last Admin: 03/23/17 09:49 Dose: 5 mg Artificial Tears (Tears Naturale) 0 drop EA EYE PRN PRN PRN Reason: Dry Eyes Clonidine (Catapres) 0.1 mg PO Q4H PRN PRN Reason: Systolic BP > 180 Cyanocobalamin (Vitamin B-12) 1,000 mcg PO DAILY [facility] Last Admin: 03/23/17 09:51 Dose: 1,000 mcg Enoxaparin Sodium (Lovenox) 30 mg SC 0900 [facility] Last Admin: 03/23/17 09:48 Dose: 30 mg Famotidine (Pepcid) 20 mg PO BID [facility] Last Admin: 03/23/17 09:49 Dose: 20 mg Folic Acid (Folvite) 1 mg PO DAILY [facility] Last Admin: 03/23/17 09:49 Dose: 1 mg Guaifenesin (Robitussin Sf) 200 mg PO Q4H PRN PRN Reason: Cough Guaifenesin (Mucinex) 600 mg PO Q12HR [facility] Last Admin: 03/23/17 09:49 Dose: 600 mg Hydralazine HCl (Apresoline) 10 mg SLOW IVP Q4H PRN PRN Reason: Systolic BP > 180 Metronidazole 500 mg/ Device 100 mls @ 100 mls/hr IVPB Q8HR [facility] Last Admin: 03/23/17 06:45 Dose: 100 mls Iron/Minerals/Multivitamins (Theragran M) 1 tab PO DAILY [facility] Last Admin: 03/23/17 09:49 Dose: 1 tab Loperamide HCl (Imodium) 2 mg PO PRN PRN PRN Reason: Diarrhea/Loose Stools Last Admin: 03/22/17 10:08 Dose: 2 mg Loratadine (Claritin) 10 mg PO DAILYPRN PRN PRN Reason: Sinus Symptoms Lorazepam (Ativan) 1 mg SLOW IVP Q4H PRN PRN Reason: Anxiety/Agitation Magnesium Hydroxide (Milk Of Magnesium) 30 ml PO DAILYPRN PRN PRN Reason: Constipation Mineral Oil/White Petrolatum (Eucerin Cream) 0 gm TOP BIDPRN PRN PRN Reason: Dry Skin Morphine Sulfate (Morphine) 2 mg SLOW IVP Q4H PRN PRN Reason: Mild-Moderate Pain (1-5) Ondansetron HCl (Zofran Odt) 4 mg PO Q6H PRN PRN Reason: Nausea/Vomiting Ondansetron HCl (Zofran) 4 mg IVP Q6H PRN PRN Reason: Nausea/Vomiting Phenol (Chloraseptic [place] 180 Ml Bot) 0 ml PO PRN PRN PRN Reason: Sore Throat Senna (Senokot) 2 tab PO HSPRN PRN PRN Reason: Constipation Sodium Chloride ([place] Nasal [place] 0.65%) 0 ml EA NARE QIDPRN PRN PRN Reason: Nasal Congestion Last Admin: 03/22/17 12:31 Dose: 2 spr Sodium Chloride (Flush - Normal Saline) 10 ml IVF Q12HR [facility] Last Admin: 03/23/17 09:50 Dose: Not Given Sodium Chloride (Flush - Normal Saline) 10 ml IVF PRN PRN PRN Reason: Saline Flush Last Admin: 03/22/17 10:11 Dose: 10 ml Thiamine HCl (Thiamine) 100 mg PO DAILY [facility] Last Admin: 03/23/17 09:50 Dose: 100 mg Vancomycin HCl (First Vancomycin) 125 mg PO QID [facility] Last Admin: 03/23/17 09:49 Dose: 125 mg Zolpidem Tartrate (Ambien) 5 mg PO HSPRN PRN PRN Reason: Insomnia
[2017-03-23] MEDS: NS 0.9% w/ 20 MEQ KCL 1,000 ML/1,000 ML BAG IV SCH (13:32)
[2017-03-23] MEDS: Loperamide HCl 2 MG CAP PO PRN (20:56)
[2017-03-24] MEDS: metroNIDAZOLE 500 MG in Premix Bag 1 BAG IVPB SCH ×3 (05:01→23:42)
[2017-03-24] MEDS: Cyanocobalamin (Vitamin B-12) 1,000 MCG TAB PO SCH (09:48)
[2017-03-24] MEDS: Enoxaparin Sodium 30 MG/0.3 ML SYRINGE SC SCH (09:48)
[2017-03-24] MEDS: Amlodipine 5 MG TAB PO SCH (09:49)
[2017-03-24] MEDS: Famotidine 20 MG TAB PO SCH ×2 (09:49→23:44)
[2017-03-24] MEDS: Multivitamin W/ Minerals 1 TAB PO SCH (09:49)
[2017-03-24] MEDS: guaiFENesin ER 600 MG TAB PO SCH ×2 (09:49→23:44)
[2017-03-24] MEDS: Folic Acid 1 MG TAB PO SCH (09:49)
[2017-03-24] MEDS: Vancomycin HCl 25 MG/ML Oral PO SCH ×4 (10:54→23:43)
--- NOTE | 2017-03-24 12:44 | PDOC.PN ---
- Subjective Encounter Start Date: 03/24/17 Encounter Start Time: 08:40 pt still has lot of diarrhoea and he can not manage himself at home - Objective Resuscitation Status: Resuscitation Status FULL:Full Resuscitation MAR Reviewed: Yes Vital Signs & Weight: Vital Signs (12 hours) Temp Pulse Resp BP BP BP Pulse Ox 03/24/17 11:52 98.2 F 90 20 159/89 H 100 03/24/17 09:49 83 172/107 H 03/24/17 08:00 98.2 F 83 20 172/107 H 100 03/24/17 05:02 98.3 F 84 18 163/94 H 99 Weight Admit Weight 113 lb 11.2 oz Weight 113 lb 11.2 oz I&O: 03/23/17 03/24/17 03/25/17 06:59 06:59 06:59 Intake Total 1050 1000 Output Total 500 Balance 550 1000 Result Diagrams: 03/22/17 05:26 03/23/17 07:52 Phys Exam - Physical Examination Constitutional: NAD HEENT: PERRLA, moist MMs, sclera anicteric Neck: no JVD, supple Respiratory: no wheezing, no rales, no rhonchi Cardiovascular: RRR, no significant murmur, no rub Gastrointestinal: soft, non-tender, no distention, positive bowel sounds Musculoskeletal: no edema, pulses present Neurological: non-focal, normal sensation, moves all 4 limbs Psychiatric: normal affect, A&O x 3 Skin: no rash, normal turgor Dx/Plan (1) C. difficile colitis Status: Acute (2) Demand ischemia Code(s): I24.8 - OTHER FORMS OF ACUTE ISCHEMIC HEART DISEASE Status: Acute (3) Hypokalemia Code(s): E87.6 - HYPOKALEMIA Status: Acute (4) Hypomagnesemia Code(s): E83.42 - HYPOMAGNESEMIA Status: Acute (5) Nondisplaced fracture of fibula Code(s): S82.839A - OTH FRACTURE OF UPPER AND LOWER END OF UNSP FIBULA, INIT Status: Acute (6) Sepsis with acute organ dysfunction Code(s): A41.9 - SEPSIS, UNSPECIFIED ORGANISM; R65.20 - SEVERE SEPSIS WITHOUT SEPTIC SHOCK Status: Acute (7) UTI (urinary tract infection) Status: Ruled-out (8) Abnormal LFTs Code(s): R79.89 - OTHER SPECIFIED ABNORMAL FINDINGS OF BLOOD CHEMISTRY Status : Chronic (9) Alcohol abuse Code(s): F10.10 - ALCOHOL ABUSE, UNCOMPLICATED Status: Chronic (10) Hypertension Code(s): I10 - ESSENTIAL (PRIMARY) HYPERTENSION Status: Chronic (11) Macrocytic anemia Code(s): D53.9 - NUTRITIONAL ANEMIA, UNSPECIFIED Status: Chronic (12) Protein-calorie malnutrition, moderate Code(s): E44.0 - MODERATE PROTEIN-CALORIE MALNUTRITION Status: Chronic (13) Tobacco abuse Code(s): Z72.0 - TOBACCO USE Status: Chronic (14) Lactic acidosis Code(s): E87.2 - ACIDOSIS Status: Resolved (15) Hyponatremia Code(s): E87.1 - HYPO-OSMOLALITY AND HYPONATREMIA Status: Acute - Plan cont current plan of care, plan discussed w/ family, continue antibiotics * continue flagyl and vancomycin * continue supportive care * discussed with * medication reviewed as below * symptomatic treatment. Review of Systems - Review of Systems Eyes: negative: Pain, Vision Change, Conjunctivae Inflammation, Eyelid Inflammation, Redness, Other ENT: negative: Ear Pain, Ear Discharge, Nose Pain, Nose Discharge, Nose Congestion, Mouth Pain, Mouth Swelling, Throat Pain, Throat Swelling, Other Respiratory: negative: Cough, Dry, Shortness of Breath, Hemoptysis, SOB with Excertion, Pleuritic Pain, Sputum, Wheezing Cardiovascular: negative: chest pain, palpitations, orthopnea, paroxysmal nocturnal dyspnea, edema, light headedness, other Gastrointestinal: Diarrhea. negative: Nausea, Vomiting, Abdominal Pain, Constipation, Melena, Hematochezia, Other Genitourinary: negative: Dysuria, Frequency, Incontinence, Hematuria, Retention , Other Musculoskeletal: negative: Neck Pain, Shoulder Pain, Arm Pain, Back Pain, Hand Pain, Leg Pain, Foot Pain, Other Skin: negative: Rash, Lesions, Senthil, Bruising, Other - Medications/Allergies Allergies/Adverse Reactions: Allergies Allergy/AdvReac Type Severity Reaction Status Date / Time lactose Allergy Verified 03/20/17 03:34 Medications: Current Medications Acetaminophen (Tylenol) 650 mg PO Q4H PRN PRN Reason: Headache/Fever or Pain Hydrocodone Bitart/Acetaminophen ([place] 5/325) 1 tab PO Q4H PRN PRN Reason: Moderate Pain (4-6) Last Admin: 03/20/17 21:10 Dose: 1 tab Al Hydroxide/Mg Hydroxide (Maalox) 30 ml PO Q6H PRN PRN Reason: Heartburn or Indigestion Albuterol/Ipratropium (Duoneb) 3 ml NEB [id number] PRN PRN Reason: SOB &/or Wheezing Last Admin: 03/22/17 14:42 Dose: 3 ml Amlodipine Besylate (Norvasc) 5 mg PO DAILY [facility] Last Admin: 03/24/17 09:49 Dose: 5 mg Artificial Tears (Tears Naturale) 0 drop EA EYE PRN PRN PRN Reason: Dry Eyes Clonidine (Catapres) 0.1 mg PO Q4H PRN PRN Reason: Systolic BP > 180 Cyanocobalamin (Vitamin B-12) 1,000 mcg PO DAILY [facility] Last Admin: 03/24/17 09:48 Dose: 1,000 mcg Enoxaparin Sodium (Lovenox) 30 mg SC 0900 [facility] Last Admin: 03/24/17 09:48 Dose: 30 mg Famotidine (Pepcid) 20 mg PO BID [facility] Last Admin: 03/24/17 09:49 Dose: 20 mg Folic Acid (Folvite) 1 mg PO DAILY [facility] Last Admin: 03/24/17 09:49 Dose: 1 mg Guaifenesin (Robitussin Sf) 200 mg PO Q4H PRN PRN Reason: Cough Guaifenesin (Mucinex) 600 mg PO Q12HR [facility] Last Admin: 03/24/17 09:49 Dose: 600 mg Hydralazine HCl (Apresoline) 10 mg SLOW IVP Q4H PRN PRN Reason: Systolic BP > 180 Metronidazole 500 mg/ Device 100 mls @ 100 mls/hr IVPB Q8HR [facility] Last Admin: 03/24/17 05:01 Dose: 100 mls Potassium Chloride/Sodium Chloride (Ns 0.9% W/ 20 Meq Kcl) 1,000 ml in 1,000 mls @ 50 mls/hr IV .Q20H [facility] Last Admin: 03/23/17 13:32 Dose: 1,000 mls Iron/Minerals/Multivitamins (Theragran M) 1 tab PO DAILY [facility] Last Admin: 03/24/17 09:49 Dose: 1 tab Loperamide HCl (Imodium) 2 mg PO PRN PRN PRN Reason: Diarrhea/Loose Stools Last Admin: 03/23/17 20:56 Dose: 2 mg Loratadine (Claritin) 10 mg PO DAILYPRN PRN PRN Reason: Sinus Symptoms Lorazepam (Ativan) 1 mg SLOW IVP Q4H PRN PRN Reason: Anxiety/Agitation Magnesium Hydroxide (Milk Of Magnesium) 30 ml PO DAILYPRN PRN PRN Reason: Constipation Mineral Oil/White Petrolatum (Eucerin Cream) 0 gm TOP BIDPRN PRN PRN Reason: Dry Skin Morphine Sulfate (Morphine) 2 mg SLOW IVP Q4H PRN PRN Reason: Mild-Moderate Pain (1-5) Ondansetron HCl (Zofran Odt) 4 mg PO Q6H PRN PRN Reason: Nausea/Vomiting Ondansetron HCl (Zofran) 4 mg IVP Q6H PRN PRN Reason: Nausea/Vomiting Phenol (Chloraseptic [place] 180 Ml Bot) 0 ml PO PRN PRN PRN Reason: Sore Throat Senna (Senokot) 2 tab PO HSPRN PRN PRN Reason: Constipation Sodium Chloride ([place] Nasal [place] 0.65%) 0 ml EA NARE QIDPRN PRN PRN Reason: Nasal Congestion Last Admin: 03/22/17 12:31 Dose: 2 spr Sodium Chloride (Flush - Normal Saline) 10 ml IVF Q12HR [facility] Last Admin: 03/23/17 20:51 Dose: 10 ml Sodium Chloride (Flush - Normal Saline) 10 ml IVF PRN PRN PRN Reason: Saline Flush Last Admin: 03/22/17 10:11 Dose: 10 ml Thiamine HCl (Thiamine) 100 mg PO DAILY [facility] Last Admin: 03/24/17 09:48 Dose: 100 mg Vancomycin HCl (First Vancomycin) 125 mg PO QID [facility] Last Admin: 03/24/17 10:54 Dose: 125 mg Zolpidem Tartrate (Ambien) 5 mg PO HSPRN PRN PRN Reason: Insomnia
[2017-03-24] MEDS: NS 0.9% w/ 20 MEQ KCL 1,000 ML/1,000 ML BAG IV SCH (14:59)
[2017-03-25] MEDS: NS 0.9% w/ 20 MEQ KCL 1,000 ML/1,000 ML BAG IV SCH (05:04)
[2017-03-25] MEDS: metroNIDAZOLE 500 MG in Premix Bag 1 BAG IVPB SCH (06:07)
[2017-03-25] MEDS: Famotidine 20 MG TAB PO SCH (08:12)
[2017-03-25] MEDS: Cyanocobalamin (Vitamin B-12) 1,000 MCG TAB PO SCH (08:12)
[2017-03-25] MEDS: Folic Acid 1 MG TAB PO SCH (08:12)
[2017-03-25] MEDS: Amlodipine 5 MG TAB PO SCH (08:12)
[2017-03-25] MEDS: guaiFENesin ER 600 MG TAB PO SCH (08:13)
[2017-03-25] MEDS: Enoxaparin Sodium 30 MG/0.3 ML SYRINGE SC SCH (08:13)
[2017-03-25] MEDS: Multivitamin W/ Minerals 1 TAB PO SCH (08:13)
[2017-03-25 09:17] VITALS: BP 171/99; TEMP 97.4
[2017-03-25 09:37] LABS: ALT (SGPT) 20 U/L (8-55); AST (SGOT) 30 U/L (5-34); Albumin 3.6 g/dL (3.4-4.8); Alkaline Phosphatase 124 U/L (40-150); Anion Gap 8 mmol/L (10-20); BUN (Urea Nitrogen) 4 mg/dL (8.4-25.7); Bilirubin, Total 0.4 mg/dL (0.2-1.2); Calc. Creatinine Clearance 91 mL/min (70-130); Calcium 9.3 mg/dL (7.8-10.44); Carbon Dioxide 29 mmol/L (23-31); Chloride 96 mmol/L (98-107); Estimated GFR-MDRD Greater than 90; Globulin 3.1 g/dL (2.4-3.5); Glucose 100 mg/dL (80-115); Potassium 3.3 mmol/L (3.5-5.1); Protein, Total 6.7 g/dL (5.8-8.1); Sodium 130 mmol/L (136-145)
[2017-03-25] MEDS: Vancomycin HCl 25 MG/ML Oral PO SCH (09:41)
[2017-03-25] MEDS ORDERED: Potassium Chloride 20 MEQ TAB PO SCH (10:45)
--- NOTE | 2017-03-25 11:29 | DIS ---
DATE OF ADMISSION: 03/20/2017 DATE OF DISCHARGE: 03/25/2017 PRIMARY CARE PHYSICIAN: Lane Escobedo M.D. DISCHARGE DISPOSITION: Home. PRIMARY DISCHARGE DIAGNOSES: 1. Clostridium difficile colitis. 2. Demand ischemia. 3. Hypokalemia. 4. Hypomagnesemia. 5. Hyponatremia. 6. Sepsis with acute organ dysfunction. 7. Nondisplaced fracture of the fibia. 8. Abnormal LFT. 9. Alcohol abuse. 10. Tobacco abuse. 11. Macrocytic anemia. 12. Moderate protein calorie malnutrition. SECONDARY DISCHARGE DIAGNOSES: 1. Hypertension. 2. Tobacco abuse. 3. Alcohol abuse. 4. Abnormal LFT. 5. Macrocytic anemia. 6. Protein calorie malnutrition. PRIMARY PROCEDURE/OPERATION: None. RADIOLOGICAL INVESTIGATION: Echocardiography is normal. SIGNIFICANT LABORATORY DATA: WBC 7.6, hemoglobin 10.8, MCV 104, platelets 158. Sodium 130, potassiu m 3.3, BUN 4, creatinine 0.62, calcium 9.3. LFTs normal. Blood culture negative. Influenza negativ e. C. diff positive. DISCHARGE MEDICATIONS: Oral vancomycin 125 mg capsule q.6 hourly for 15 days, Florastor 250 mg p.o. daily for 30 days, amlodipine 5 mg p.o. daily, vitamin B12 of 1000 mcg p.o. daily, Pepcid 20 mg p.o. b.i.d., folic acid 1 mg p.o. daily, multivitamin 1 tablet p.o. daily, thiamine 100 mg p.o. daily. CONTRAINDICATIONS: None. CODE STATUS: FULL CODE. INPATIENT CONSULTANTS: None. ALLERGIES: LACTOSE intolerance. DISCHARGE PLAN: Post hospital, the patient will follow up with primary care physician in 1 week. HOSPITAL COURSE: A 61-year-old male with the above mentioned medical problems, who had a routine blo od test done by primary care physician. The patient was having a lot of diarrhea at home. He was fo und with significant leukocytosis. There was question of infection with urinary tract infection. He was told to come to the ER and in the emergency room, he appeared septic. He was admitted to the lemetry floor because of the elevated troponin that was related to demand ischemia. Initially, the p atient was treated with Rocephin and Levaquin for suspected urinary tract infection, but when we chec ked stool for C. diff, it was came back positive and his other cultures remain negative and the patie nt was treated with oral vancomycin and Flagyl. We discontinued previous antibiotic therapy. The patient's diarrhea is significantly improving day by day. He will need oral vancomycin therapy f or another 15 days. While in hospital, we provided to avoid tobacco and alcohol product. During thi s admission, he had CT pelvis that did not show any fracture. He had x-ray of the knee, which showed proximal nondisplaced fibular fracture, which was recently diagnosed. While in hospital, his abnorm al electrolytes were replaced. The patient is doing very well with physical therapy and today he appears to be medically stable for discharge. The patient was seen and examined at bedside today. Plan of care discussed with the patient's . PHYSICAL EXAMINATION: VITAL SIGNS: Currently, temperature 97.4, pulse 92, blood pressure 160/97, weight 113 pounds. GENERAL: The patient is currently alert, oriented, no acute distress. HEAD: Normocephalic, atraumatic. EYES: Pupils round, reactive to light. Extraocular muscles are intact. ENT: Oropharynx within normal limits. Moist mucous membranes. No oral lesions. No pharyngeal eryt shanti, no exudates. NECK: Supple, no JVD, no thyromegaly, no carotid bruits. LUNGS: Clear to auscultation without any rhonchi or rales. CARDIAC: S1, S2 regular, without any murmurs. ABDOMEN: Soft and benign, no tenderness. EXTREMITIES: No edema. NEUROLOGIC: Nonfocal examination. The patient is medically stable for discharge. He is advised to follow up with primary care physicia n as well as orthopedic physician as an outpatient basis.
== END 2017-03-25 11:26 | disposition home or self-care (01) | DRG 872 ==
LOC: ERS 23:07 → 2NO 03-20 00:47 → SURG B 03-21 14:22
PROVIDERS: ADMIT Family Medicine; ATTEND Family Medicine
DX: A41.9 Sepsis, unspecified organism (principal); E87.2 Acidosis; A04.72 Enterocolitis due to Clostridium difficile, not specified as recurrent; E44.0 Moderate protein-calorie malnutrition; E87.1 Hypo-osmolality and hyponatremia; I24.8 Other forms of acute ischemic heart disease; E83.42 Hypomagnesemia; F10.239 Alcohol dependence with withdrawal, unspecified; Z68.1 Body mass index [BMI] 19.9 or less, adult; F17.210 Nicotine dependence, cigarettes, uncomplicated; D50.9 Iron deficiency anemia, unspecified; E87.6 Hypokalemia; R65.20 Severe sepsis without septic shock; I10 Essential (primary) hypertension; J44.9 Chronic obstructive pulmonary disease, unspecified; R79.89 Other specified abnormal findings of blood chemistry; S82.409D Unspecified fracture of shaft of unspecified fibula, subsequent encounter for closed fracture with routine healing; X58.XXXD Exposure to other specified factors, subsequent encounter
CPT/HCPCS: 36415; 80048; 80053; 82553; 83605; 83735; 84100; 84484; 85025; 87040; 87324; 87449; 93306; 94640; 96361; 96365; 96375; 99406; A4216; G8978-GP-CK; G8979-GP-CI; G8987-GO-CJ; G8988-GO-CI; J0360; J0696; J1650; J1956; J2060; J2270; J3370; J3411; J3475; J7042; J7050; J7620

== ENCOUNTER 2017-06-03 15:15 | Emergency (ER) | payer OTHER, SELFPAY ==
[2017-06-03] MEDS ORDERED: HYDROcodone/Acetaminophen 5/325 mg Tablet ONE (15:26)
--- NOTE | 2017-06-03 17:08 | CT ---
CT LUMBAR SPINE: History: Injured back while lifting a heavy object. Technique: Axial images are obtained with coronal and sagittal reconstructions. FINDINGS: Atherosclerotic calcification of the abdominal aorta and iliac artery seen. For the purposes of this dictation there are five L5 vertebral vertebra. T12-L1: Unremarkable. L1-2: Unremarkable. L2-3: Unremarkable. L3-4: There is mild facet hypertrophy. No significant degree of central stenosis or neural foraminal narrowing is seen. L4-5: There is mild facet hypertrophy. No significant evidence of central stenosis or neural foramina l narrowing is seen. L5-S1: Unremarkable. Sacrum: There is an area of lucency in the right sacral ala concerning for an area of right upper sac ral fracture extending from the right sacrum into the right S1-2 neural foramen. This may represent a cute fracture. IMPRESSION: Area of lucency in the right upper sacral ala concerning for a nondisplaced fracture. POS: [facility]
[2017-06-03] MEDS ORDERED: Ketorolac Tromethamine 60 MG/2 ML VIAL ONE (17:26)
--- NOTE | 2017-06-03 17:48 | CT ---
CT OF THE THORACIC SPINE WITHOUT CONTRAST: Comparison: None. History: Hurt back one hour ago lifting a heavy object. Technique: Multiple axial images were obtained in a CT of the thoracic spine without contrast. Sagitt al and coronal reformats were performed. FINDINGS: Diffuse osteopenia is seen. The vertebral bodies and intervertebral discs demonstrate normal height a nd alignment without fractures or subluxation. Small osteophytes are seen throughout the thoracic spi ne. There is no bony narrowing of the neural foramina or central canal. No prevertebral or paraspinal sof t tissue swelling is seen. There appears to be a nonobstructing small calcification in the left kidne y measuring 3 mm in size. Atherosclerotic calcifications are seen in the aorta. Emphysematous changes are seen in the visualized lungs. IMPRESSION: 1. No evidence of acute osseous abnormality of the thoracic spine. 2. Left renal calcification that is nonobstructing. 3. Atherosclerotic disease. 4. Emphysema. POS: [facility]
== END 2017-06-03 17:53 | disposition home or self-care (01) ==
LOC: ERS 15:15
DX: M54.6 Pain in thoracic spine (principal); J44.9 Chronic obstructive pulmonary disease, unspecified; F17.200 Nicotine dependence, unspecified, uncomplicated; I10 Essential (primary) hypertension
CPT/HCPCS: 72128; 72131; 96372; J1885